=== PATIENT | male | born 1945 | race Caucasian/White ===

== ENCOUNTER → 2016-05-16 | Outpatient (CLI) | payer MEDICARE, BC ==
[2016-05-16 10:21] LABS: CHLORIDE,CL 107 mmol/L (98-110); SODIUM,NA 142 mmol/L (136-146)
== END ==
LOC: MW.CHRC 09:17
PROVIDERS: ATTEND Family Medicine
DX: E11.9 Type 2 diabetes mellitus without complications (principal); R41.3 Other amnesia; E78.00 Pure hypercholesterolemia, unspecified; M79.89 Other specified soft tissue disorders; I11.0 Hypertensive heart disease with heart failure; L60.0 Ingrowing nail
CPT/HCPCS: 36415; 80053; 80061; 82607; 83036; 83880; 84439; 84443; 85025; 99214

== ENCOUNTER 2016-05-26 22:46 | Emergency (ER) | payer MEDICARE, BC ==
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
[2016-05-26 23:35] LABS: CHLORIDE,CL 105 mmol/L (98-110); SODIUM,NA 140 mmol/L (136-146)
[2016-05-27 01:56] VITALS: BP 138/75
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
== END 2016-05-27 01:45 | disposition home or self-care (01) ==
LOC: MW.ED 22:46
DX: R53.1 Weakness (principal); F03.90 Unspecified dementia, unspecified severity, without behavioral disturbance, psychotic disturbance, mood disturbance, and anxiety; R60.9 Edema, unspecified; Z79.02 Long term (current) use of antithrombotics/antiplatelets; Z79.82 Long term (current) use of aspirin; Z79.899 Other long term (current) drug therapy; V89.2XXA Person injured in unspecified motor-vehicle accident, traffic, initial encounter
CPT/HCPCS: 70450; 70450-26; 71010; 71010-26; 80053; 81001; 84484; 85025; 93005; 99284-25; 99291

== ENCOUNTER → 2016-07-09 | Outpatient (CLI) | payer MEDICARE, BC | LOC: MW.CHPOD 08:00 | PROVIDERS: ATTEND Podiatrist Foot & Ankle Surgery | DX: M79.672 Pain in left foot (principal); R60.0 Localized edema; E11.9 Type 2 diabetes mellitus without complications; L60.0 Ingrowing nail; B35.1 Tinea unguium; M79.89 Other specified soft tissue disorders | CPT/HCPCS: 11721; 29580; 99214 ==

== ENCOUNTER 2016-10-18 13:00 | Inpatient (IN) | payer MEDICARE, BC ==
[2016-10-18] MEDS ORDERED: Acetaminophen 325 MG Tab PO PRN (13:43)
[2016-10-18] MEDS ORDERED: Sodium Chloride 0.9% 1,000 ML IV SCH ×2 (13:45→15:00)
--- NOTE | 2016-10-18 14:30 | PCM.HP ---
H&P History of Present Illness - General Admit Problem/Dx: Admission Diagnosis/Problem Admission Diagnosis/Problem Dehydration - History of Present Illness Initial Comments - Free Text/Narative: 71 yo male with pmh of Parkinson's disease who is brought to Dr. Le's clinic by family. Family reports he is having hallucinations at home and is not eating or taking care of himself. He has has had multiple falls. Family is concerned about his well being at home. - Related Data Allergies/Adverse Reactions: Allergies Allergy/AdvReac Type Severity Reaction Status Date / Time No Known Allergies Allergy Verified 05/26/16 23:36 Home Medications: Home Meds Clopidogrel [Plavix] 75 mg PO DAILY 12/06/14 [History] Dapagliflozin Propanediol [Farxiga] 5 mg PO DAILY 12/06/14 [History] Furosemide 40 mg PO DAILY 12/06/14 [History] Glimepiride 4 mg PO DAILY 12/06/14 [History] Lisinopril 30 mg PO DAILY 12/06/14 [History] Metoprolol Tartrate 100 mg PO DAILY 12/06/14 [History] SitaGLIPtin [Januvia] 100 mg PO DAILY 12/06/14 [History] atorvaSTATin [Lipitor] 20 mg PO DAILY 12/06/14 [History] metFORMIN [Glucophage] 1,000 mg PO BID 12/06/14 [History] Aspirin 81 mg PO DAILY 05/26/16 [History] amLODIPine [Norvasc] 10 mg PO DAILY 05/26/16 [History] Past Medical History - Past Health History Medical/Surgical History: Denies Medical/Surgical History Cardiovascular History: Reports: Hypertension - Past Surgical History Other Neurological Surgeries/Procedures: 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 Exam - Exam Exam: See Below - Vital Signs Weight: 105 kg - Exam General: Alert, Cooperative HEENT: Mucosa Moist & [place] Neck: Supple Lungs: Clear to Auscultation, Normal Respiratory Effort Cardiovascular: Regular Rate, Regular Rhythm GI/Abdominal Exam: Normal Bowel Sounds, Non-Tender, No Distention Rectal (Males) Exam: Other (small area of induration of left gluteal cleft) Extremities: Normal Inspection, Normal Range of Motion, Non-Tender, No Pedal Edema Skin: Warm, Dry, Intact Neurological: Cranial Nerves Intact, Other (resting tremor, with cogwheeling and shuffle gait) - Patient Data Result Diagrams: 10/20/16 04:48 10/20/16 04:48 *Q Meaningful Use (ADM) - VTE *Q VTE Criteria *Q: - Stroke *Q Stroke Criteria *Q: - AMI *Q AMI Criteria *Q: Problem List Initiated/Reviewed/Updated: Yes Orders Last 24hrs: Active Orders 24 hr Category Date Time Status Patient Status [ADT] Routine ADT 10/18/16 13:43 Active Antiembolic Devices [RC] PER UNIT ROUTINE Care 10/18/16 13:45 Active Intake and Output [RC] QSHIFT Care 10/18/16 13:44 Active Oxygen Therapy [RC] PRN Care 10/18/16 13:43 Active VTE/DVT Education [RC] PER UNIT ROUTINE Care 10/18/16 13:43 Active Vital Signs [RC] Q4H Care 10/18/16 13:43 Active [employer] Diet [DIET] Diet 10/18/16 Breakfast Active BASIC METABOLIC PANEL,BMP [CHEM] AM Lab 10/19/16 05:11 Ordered BASIC METABOLIC PANEL,BMP [CHEM] AM Lab 10/20/16 05:11 Ordered CBC WITH AUTO DIFF [HEME] AM Lab 10/19/16 05:11 Ordered CBC WITH AUTO DIFF [HEME] AM Lab 10/20/16 05:11 Ordered Acetaminophen [Tylenol] Med 10/18/16 13:43 Active 650 mg PO Q4H PRN Enoxaparin [Lovenox] Med 10/19/16 09:00 Active 40 mg SUBCUT DAILY Insulin Aspart [NovoLOG] Med 10/18/16 14:00 Active See Protocol SUBCUT TIDAC Sodium Chloride 0.9% [Normal Saline] 1,000 ml Med 10/18/16 13:45 Active IV ASDIRECTED Sequential Compression Device [OM.PC] Per Unit Routine Oth 10/18/16 13:44 Ordered Medication Orders Acetaminophen (Tylenol) 650 mg PO Q4H PRN PRN Reason: Pain (Mild 1-3)/fever Enoxaparin Sodium (Lovenox) 40 mg SUBCUT DAILY [facility] Sodium Chloride (Normal Saline) 1,000 mls @ 125 mls/hr IV ASDIRECTED [facility] Stop: 10/19/16 21:44 Insulin Aspart (Novolog) 0 unit SUBCUT TIDAC [facility] PRN Reason: Protocol Assessment/Plan Comment:: 71 yo male admitted for failure to thrive at home. His BUN is elevated so he may be dehydrated. Will give some IV fluids. Will obtain medical records inorder to reconcile medications. He has been seeing Dr. Mccullough who has been adjusting his medications.
[2016-10-18] MEDS: Insulin Aspart 100 Units/ML 3 ML Pen SUBCUT SCH ×2 (14:32→17:40)
[2016-10-19 05:23] LABS: CHLORIDE,CL 107 mmol/L (98-110); SODIUM,NA 142 mmol/L (136-146)
[2016-10-19] MEDS: Insulin Aspart 100 Units/ML 3 ML Pen SUBCUT SCH ×3 (06:30→17:10)
[2016-10-19] MEDS: atorvaSTATin 20 MG Tab PO SCH (08:43)
[2016-10-19] MEDS: Clopidogrel 75 MG Tab PO SCH (08:43)
[2016-10-19] MEDS: amLODIPine 5 MG Tab PO SCH (08:43)
[2016-10-19] MEDS: Aspirin 81 MG Tab.Chew PO SCH (08:44)
[2016-10-19] MEDS: Enoxaparin 40 MG/0.4 ML Syringe SUBCUT SCH (08:44)
--- NOTE | 2016-10-19 12:26 | PCM.PN ---
- Review of Systems Systems Review Comment:: no complaints, orientated to day and place. - Patient Data Vitals - Most Recent: Last Vital Signs Temp 36.7 C 10/19/16 08:00 Pulse 73 10/19/16 08:00 Resp 19 10/19/16 08:00 BP 132/60 10/19/16 08:43 Pulse Ox 98 10/19/16 08:00 Weight - Most Recent: 105 kg I&O - Last 24 Hours: Intake & Output 10/18/16 10/19/16 10/19/16 22:59 06:59 14:59 Intake Total 360 520 Output Total 350 850 Balance 10 -330 Lab Results Last 24 Hours: Laboratory Results - last 24 hr 10/18/16 10/18/16 10/19/16 Range/Units 14:26 16:21 04:38 WBC 7.61 (4.0-11.0) K/uL RBC 4.36 L (4.50-5.90) M/uL Hgb 13.0 (13.0-17.0) g/dL Hct 38.6 (38.0-50.0) % MCV 88.5 (80.0-98.0) fL MCH 29.8 (27.0-32.0) pg MCHC 33.7 (31.0-37.0) g/dL RDW Std Deviation 45.8 (28.0-62.0) fl RDW Coeff of Jess 14 (11.0-15.0) % Plt Count 250 (150-400) K/uL MPV 9.60 (7.40-12.00) fL Neut % (Auto) 57.3 (48.0-80.0) % Lymph % (Auto) 25.8 (16.0-40.0) % [place] % (Auto) 12.2 (0.0-15.0) % Eos % (Auto) 4.3 (0.0-7.0) % Baso % (Auto) 0.4 (0.0-1.5) % Neut # (Auto) 4.4 (1.4-5.7) K/uL Lymph # (Auto) 2.0 (0.6-2.4) K/uL [place] # (Auto) 0.9 H (0.0-0.8) K/uL Eos # (Auto) 0.3 (0.0-0.7) K/uL Baso # (Auto) 0.0 (0.0-0.1) K/uL Nucleated RBC % 0.0 /100WBC Nucleated RBCs # 0 K/uL Sodium (136-146) mmol/L Potassium (3.5-5.1) mmol/L Chloride (98-110) mmol/L Carbon Dioxide (21-31) mmol/L BUN (6.0-23.0) mg/dL Creatinine (0.6-1.5) mg/dL Est Cr Clr Drug Dosing mL/min Estimated GFR (MDRD) ml/min Glucose (60-110) mg/dL POC Glucose 100 198 H (60-110) mg/dL Calcium (8.8-10.8) mg/dL 10/19/16 10/19/16 10/19/16 Range/Units 04:38 06:07 11:30 WBC (4.0-11.0) K/uL RBC (4.50-5.90) M/uL Hgb (13.0-17.0) g/dL Hct (38.0-50.0) % MCV (80.0-98.0) fL MCH (27.0-32.0) pg MCHC (31.0-37.0) g/dL RDW Std Deviation (28.0-62.0) fl RDW Coeff of Jess (11.0-15.0) % Plt Count (150-400) K/uL MPV (7.40-12.00) fL Neut % (Auto) (48.0-80.0) % Lymph % (Auto) (16.0-40.0) % [place] % (Auto) (0.0-15.0) % Eos % (Auto) (0.0-7.0) % Baso % (Auto) (0.0-1.5) % Neut # (Auto) (1.4-5.7) K/uL Lymph # (Auto) (0.6-2.4) K/uL [place] # (Auto) (0.0-0.8) K/uL Eos # (Auto) (0.0-0.7) K/uL Baso # (Auto) (0.0-0.1) K/uL Nucleated RBC % /100WBC Nucleated RBCs # K/uL Sodium 142 (136-146) mmol/L Potassium 3.7 (3.5-5.1) mmol/L Chloride 107 (98-110) mmol/L Carbon Dioxide 26 (21-31) mmol/L BUN 27 H (6.0-23.0) mg/dL Creatinine 0.8 (0.6-1.5) mg/dL Est Cr Clr Drug Dosing 70.14 mL/min Estimated GFR (MDRD) > 60.0 ml/min Glucose 83 (60-110) mg/dL POC Glucose 86 148 H (60-110) mg/dL Calcium 8.8 (8.8-10.8) mg/dL Med Orders - Current: Current Medications Acetaminophen (Tylenol) 650 mg PO Q4H PRN PRN Reason: Pain (Mild 1-3)/fever Last Admin: 10/18/16 18:13 Dose: 650 mg Amlodipine Besylate (Norvasc) 10 mg PO DAILY [facility] Last Admin: 10/19/16 08:43 Dose: 10 mg Aspirin (Aspirin) 81 mg PO DAILY [facility] Last Admin: 10/19/16 08:44 Dose: 81 mg Atorvastatin Calcium (Lipitor) 20 mg PO DAILY [facility] Last Admin: 10/19/16 08:43 Dose: 20 mg Clopidogrel Bisulfate (Plavix) 75 mg PO DAILY [facility] Last Admin: 10/19/16 08:43 Dose: 75 mg Enoxaparin Sodium (Lovenox) 40 mg SUBCUT DAILY [facility] Last Admin: 10/19/16 08:44 Dose: 40 mg Insulin Aspart (Novolog) 0 unit SUBCUT TIDAC [facility] PRN Reason: Protocol Last Admin: 10/19/16 11:39 Dose: Not Given Discontinued Medications Sodium Chloride (Normal Saline) 1,000 mls @ 125 mls/hr IV ASDIRECTED [facility] Stop: 10/19/16 21:44 Last Admin: 10/18/16 14:32 Dose: 125 mls/hr Sodium Chloride (Normal Saline) 1,000 mls @ 125 mls/hr IV ASDIRECTED [facility] Stop: 10/18/16 22:59 Last Admin: 10/18/16 15:00 Dose: 125 mls/hr - Exam General: Alert, Cooperative, No Acute Distress Lungs: Clear to Auscultation, Normal Respiratory Effort Cardiovascular: Regular Rate, Regular Rhythm GI/Abdominal Exam: Normal Bowel Sounds, Soft, Non-Tender, No Distention Extremities: Normal Inspection, Non-Tender, No Pedal Edema Skin: Warm, Dry, Intact Neurological: No New Focal Deficit - Problem List Review Problem List Initiated/Reviewed/Updated: Yes - My Orders Last 24 Hours: My Active Orders 10/18/16 13:43 Patient Status [ADT] Routine Oxygen Therapy [RC] PRN VTE/DVT Education [RC] PER UNIT ROUTINE Vital Signs [RC] Q4H Acetaminophen [Tylenol] 650 mg PO Q4H PRN 10/18/16 13:44 Intake and Output [RC] Q12H Sequential Compression Device [OM.PC] Per Unit Routine 10/18/16 13:45 Antiembolic Devices [RC] PER UNIT ROUTINE 10/18/16 14:00 Insulin Aspart [NovoLOG] See Protocol SUBCUT TIDAC 10/18/16 17:57 Blood Glucose Check, Bedside [RC] TIDAC 10/19/16 09:00 Aspirin 81 mg PO DAILY Clopidogrel [Plavix] 75 mg PO DAILY Enoxaparin [Lovenox] 40 mg SUBCUT DAILY amLODIPine [Norvasc] 10 mg PO DAILY atorvaSTATin [Lipitor] 20 mg PO DAILY 10/19/16 10:37 Consult to Physical Therapy [PT Evaluation and Treatment] [CONS] Routine 10/20/16 05:11 BASIC METABOLIC PANEL,BMP [CHEM] AM CBC WITH AUTO DIFF [HEME] AM - Plan Plan:: Patient appears to have an unspecified movement disorder and dementia. He has been followed by Dr. Mccullough but sinemet and rivastigmine have made his hallucinations worse. Patient has wander guard. Patient will likely need SNF placement.
[2016-10-20 05:21] LABS: CHLORIDE,CL 111 mmol/L (98-110); SODIUM,NA 142 mmol/L (136-146)
[2016-10-20] MEDS: Insulin Aspart 100 Units/ML 3 ML Pen SUBCUT SCH ×3 (06:32→16:36)
[2016-10-20] MEDS: Aspirin 81 MG Tab.Chew PO SCH (08:16)
[2016-10-20] MEDS: atorvaSTATin 20 MG Tab PO SCH (08:19)
[2016-10-20] MEDS: Clopidogrel 75 MG Tab PO SCH (08:21)
[2016-10-20] MEDS: amLODIPine 5 MG Tab PO SCH (08:21)
[2016-10-20] MEDS: Enoxaparin 40 MG/0.4 ML Syringe SUBCUT SCH (08:24)
--- NOTE | 2016-10-20 10:12 | PCM.PN ---
- Review of Systems Systems Review Comment:: no new complaints, needs help getting out of bed and off of toilet. - Patient Data Vitals - Most Recent: Last Vital Signs Temp 36.7 C 10/20/16 08:00 Pulse 66 10/20/16 08:00 Resp 18 10/20/16 08:00 BP 127/69 10/20/16 08:21 Pulse Ox 94 L 10/20/16 08:00 Weight - Most Recent: 105 kg I&O - Last 24 Hours: Intake & Output 10/19/16 10/20/16 10/20/16 22:59 06:59 14:59 Intake Total 1200 480 Output Total 900 750 Balance 300 -270 Lab Results Last 24 Hours: Laboratory Results - last 24 hr 10/19/16 10/19/16 10/20/16 Range/Units 11:30 16:55 04:48 WBC 7.44 (4.0-11.0) K/uL RBC 4.41 L (4.50-5.90) M/uL Hgb 13.3 (13.0-17.0) g/dL Hct 39.2 (38.0-50.0) % MCV 88.9 (80.0-98.0) fL MCH 30.2 (27.0-32.0) pg MCHC 33.9 (31.0-37.0) g/dL RDW Std Deviation 46.1 (28.0-62.0) fl RDW Coeff of Jess 14 (11.0-15.0) % Plt Count 232 (150-400) K/uL MPV 9.40 (7.40-12.00) fL Neut % (Auto) 52.1 (48.0-80.0) % Lymph % (Auto) 32.4 (16.0-40.0) % Kern % (Auto) 10.3 (0.0-15.0) % Eos % (Auto) 4.7 (0.0-7.0) % Baso % (Auto) 0.5 (0.0-1.5) % Neut # (Auto) 3.9 (1.4-5.7) K/uL Lymph # (Auto) 2.4 (0.6-2.4) K/uL Kern # (Auto) 0.8 (0.0-0.8) K/uL Eos # (Auto) 0.4 (0.0-0.7) K/uL Baso # (Auto) 0.0 (0.0-0.1) K/uL Nucleated RBC % 0.0 /100WBC Nucleated RBCs # 0 K/uL Sodium (136-146) mmol/L Potassium (3.5-5.1) mmol/L Chloride (98-110) mmol/L Carbon Dioxide (21-31) mmol/L BUN (6.0-23.0) mg/dL Creatinine (0.6-1.5) mg/dL Est Cr Clr Drug Dosing mL/min Estimated GFR (MDRD) ml/min Glucose (60-110) mg/dL POC Glucose 148 H 188 H (60-110) mg/dL Calcium (8.8-10.8) mg/dL 10/20/16 Range/Units 04:48 WBC (4.0-11.0) K/uL RBC (4.50-5.90) M/uL Hgb (13.0-17.0) g/dL Hct (38.0-50.0) % MCV (80.0-98.0) fL MCH (27.0-32.0) pg MCHC (31.0-37.0) g/dL RDW Std Deviation (28.0-62.0) fl RDW Coeff of Jess (11.0-15.0) % Plt Count (150-400) K/uL MPV (7.40-12.00) fL Neut % (Auto) (48.0-80.0) % Lymph % (Auto) (16.0-40.0) % Kern % (Auto) (0.0-15.0) % Eos % (Auto) (0.0-7.0) % Baso % (Auto) (0.0-1.5) % Neut # (Auto) (1.4-5.7) K/uL Lymph # (Auto) (0.6-2.4) K/uL Kern # (Auto) (0.0-0.8) K/uL Eos # (Auto) (0.0-0.7) K/uL Baso # (Auto) (0.0-0.1) K/uL Nucleated RBC % /100WBC Nucleated RBCs # K/uL Sodium 142 (136-146) mmol/L Potassium 3.6 (3.5-5.1) mmol/L Chloride 111 H (98-110) mmol/L Carbon Dioxide 24 (21-31) mmol/L BUN 16 (6.0-23.0) mg/dL Creatinine 0.7 (0.6-1.5) mg/dL Est Cr Clr Drug Dosing 80.16 mL/min Estimated GFR (MDRD) > 60.0 ml/min Glucose 97 (60-110) mg/dL POC Glucose (60-110) mg/dL Calcium 8.7 L (8.8-10.8) mg/dL Med Orders - Current: Current Medications Acetaminophen (Tylenol) 650 mg PO Q4H PRN PRN Reason: Pain (Mild 1-3)/fever Last Admin: 10/18/16 18:13 Dose: 650 mg Amlodipine Besylate (Norvasc) 10 mg PO DAILY [facility] Last Admin: 10/20/16 08:21 Dose: 10 mg Aspirin (Aspirin) 81 mg PO DAILY [facility] Last Admin: 10/20/16 08:16 Dose: 81 mg Atorvastatin Calcium (Lipitor) 20 mg PO DAILY [facility] Last Admin: 10/20/16 08:19 Dose: 20 mg Clopidogrel Bisulfate (Plavix) 75 mg PO DAILY [facility] Last Admin: 10/20/16 08:21 Dose: 75 mg Enoxaparin Sodium (Lovenox) 40 mg SUBCUT DAILY [facility] Last Admin: 10/20/16 08:24 Dose: 40 mg Insulin Aspart (Novolog) 0 unit SUBCUT TIDAC [facility] PRN Reason: Protocol Last Admin: 10/20/16 06:32 Dose: Not Given Discontinued Medications Sodium Chloride (Normal Saline) 1,000 mls @ 125 mls/hr IV ASDIRECTED [facility] Stop: 10/19/16 21:44 Last Admin: 10/18/16 14:32 Dose: 125 mls/hr Sodium Chloride (Normal Saline) 1,000 mls @ 125 mls/hr IV ASDIRECTED [facility] Stop: 10/18/16 22:59 Last Admin: 10/18/16 15:00 Dose: 125 mls/hr - Exam General: Cooperative, No Acute Distress Neck: Supple Lungs: Clear to Auscultation, Normal Respiratory Effort Cardiovascular: Regular Rate, Regular Rhythm GI/Abdominal Exam: Soft, Non-Tender Extremities: No Pedal Edema Skin: Warm, Dry, Intact Neurological: No New Focal Deficit - Problem List Review Problem List Initiated/Reviewed/Updated: Yes - My Orders Last 24 Hours: My Active Orders 10/19/16 10:37 Consult to Physical Therapy [PT Evaluation and Treatment] [CONS] Routine 10/19/16 12:58 Code Status [Resuscitation Status] Routine - Plan Plan:: Patient appears to have an unspecified movement disorder and dementia. He has been followed by Dr. Mccullough but sinemet and rivastigmine have made his hallucinations worse. Discharge is pending placement.
[2016-10-21] MEDS: Insulin Aspart 100 Units/ML 3 ML Pen SUBCUT SCH ×3 (06:32→17:03)
[2016-10-21] MEDS: Clopidogrel 75 MG Tab PO SCH (08:09)
[2016-10-21] MEDS: Aspirin 81 MG Tab.Chew PO SCH (08:09)
[2016-10-21] MEDS: atorvaSTATin 20 MG Tab PO SCH (08:09)
[2016-10-21] MEDS: amLODIPine 5 MG Tab PO SCH (08:10)
[2016-10-21] MEDS: Enoxaparin 40 MG/0.4 ML Syringe SUBCUT SCH (08:11)
--- NOTE | 2016-10-21 10:08 | PCM.PN ---
- Review of Systems Systems Review Comment:: no new complaints - Patient Data Vitals - Most Recent: Last Vital Signs Temp 37.1 C 10/21/16 08:00 Pulse 62 10/21/16 08:00 Resp 18 10/21/16 08:00 BP 132/72 10/21/16 08:10 Pulse Ox 95 10/21/16 08:00 Weight - Most Recent: 105 kg I&O - Last 24 Hours: Intake & Output 10/20/16 10/21/16 10/21/16 22:59 06:59 14:59 Intake Total 1376 280 Output Total 600 1230 Balance 776 -950 Lab Results Last 24 Hours: Laboratory Results - last 24 hr 10/20/16 10/20/16 10/20/16 Range/Units 06:16 11:49 16:34 POC Glucose 113 H 186 H 236 H (60-110) mg/dL Med Orders - Current: Current Medications Acetaminophen (Tylenol) 650 mg PO Q4H PRN PRN Reason: Pain (Mild 1-3)/fever Last Admin: 10/18/16 18:13 Dose: 650 mg Amlodipine Besylate (Norvasc) 10 mg PO DAILY [facility] Last Admin: 10/21/16 08:10 Dose: 10 mg Aspirin (Aspirin) 81 mg PO DAILY [facility] Last Admin: 10/21/16 08:09 Dose: 81 mg Atorvastatin Calcium (Lipitor) 20 mg PO DAILY [facility] Last Admin: 10/21/16 08:09 Dose: 20 mg Clopidogrel Bisulfate (Plavix) 75 mg PO DAILY [facility] Last Admin: 10/21/16 08:09 Dose: 75 mg Enoxaparin Sodium (Lovenox) 40 mg SUBCUT DAILY [facility] Last Admin: 10/21/16 08:11 Dose: 40 mg Insulin Aspart (Novolog) 0 unit SUBCUT TIDAC [facility] PRN Reason: Protocol Last Admin: 10/21/16 06:32 Dose: Not Given Discontinued Medications Sodium Chloride (Normal Saline) 1,000 mls @ 125 mls/hr IV ASDIRECTED [facility] Stop: 10/19/16 21:44 Last Admin: 10/18/16 14:32 Dose: 125 mls/hr Sodium Chloride (Normal Saline) 1,000 mls @ 125 mls/hr IV ASDIRECTED [facility] Stop: 10/18/16 22:59 Last Admin: 10/18/16 15:00 Dose: 125 mls/hr - Exam General: Cooperative, No Acute Distress Lungs: Clear to Auscultation, Normal Respiratory Effort Cardiovascular: Regular Rate, Regular Rhythm GI/Abdominal Exam: Normal Bowel Sounds, Non-Tender, No Distention Extremities: No Pedal Edema - Problem List Review Problem List Initiated/Reviewed/Updated: Yes - Plan Plan:: 71 yo male with dementia and movement disorder. discharge pending placement.
[2016-10-22] MEDS: Insulin Aspart 100 Units/ML 3 ML Pen SUBCUT SCH ×2 (06:35→12:36)
[2016-10-22] MEDS: Aspirin 81 MG Tab.Chew PO SCH (08:38)
[2016-10-22] MEDS: Clopidogrel 75 MG Tab PO SCH (08:38)
[2016-10-22] MEDS: amLODIPine 5 MG Tab PO SCH (08:39)
[2016-10-22] MEDS: atorvaSTATin 20 MG Tab PO SCH (08:39)
[2016-10-22] MEDS: Enoxaparin 40 MG/0.4 ML Syringe SUBCUT SCH (08:45)
--- NOTE | 2016-10-22 10:12 | PCM.PN ---
- General Info Date of Service: 10/22/16 Admission Dx/Problem (Free Text): Admission Diagnosis/Problem Admission Diagnosis/Problem Dehydration Subjective Update: Sitlexii hardwickp in chair, eating breakfast this morning. Reports feeling bad. Denies chest pain or SOB. having some L great toe pain. Not eager about going to [facility]. Functional Status: Reports: Pain Controlled, Tolerating Diet, Ambulating, Urinating - Review of Systems General: Reports: No Symptoms. Denies: Fever HEENT: Reports: No Symptoms. Denies: Sore Throat Pulmonary: Reports: No Symptoms. Denies: Shortness of Breath, Cough, Sputum Cardiovascular: Reports: No Symptoms. Denies: Chest Pain Gastrointestinal: Reports: No Symptoms. Denies: Abdominal Pain, Diarrhea, Nausea, Vomiting Genitourinary: Reports: No Symptoms. Denies: Dysuria, Frequency, Burning Skin: Reports: No Symptoms - Patient Data Vitals - Most Recent: Last Vital Signs Temp 98.7 F 10/22/16 08:20 Pulse 92 10/22/16 08:20 Resp 14 10/22/16 08:20 BP 145/78 H 10/22/16 08:39 Pulse Ox 98 10/22/16 08:20 Weight - Most Recent: 105 kg I&O - Last 24 Hours: Intake & Output 10/21/16 10/22/16 10/22/16 22:59 06:59 14:59 Intake Total 1214 1166 Output Total 700 1180 Balance 514 -14 Lab Results Last 24 Hours: Laboratory Results - last 24 hr 10/21/16 10/21/16 10/21/16 Range/Units 06:19 11:17 16:17 POC Glucose 116 H 164 H 196 H (60-110) mg/dL Med Orders - Current: Current Medications Acetaminophen (Tylenol) 650 mg PO Q4H PRN PRN Reason: Pain (Mild 1-3)/fever Last Admin: 10/18/16 18:13 Dose: 650 mg Amlodipine Besylate (Norvasc) 10 mg PO DAILY [facility] Last Admin: 10/22/16 08:39 Dose: 10 mg Aspirin (Aspirin) 81 mg PO DAILY [facility] Last Admin: 10/22/16 08:38 Dose: 81 mg Atorvastatin Calcium (Lipitor) 20 mg PO DAILY [facility] Last Admin: 10/22/16 08:39 Dose: 20 mg Clopidogrel Bisulfate (Plavix) 75 mg PO DAILY [facility] Last Admin: 10/22/16 08:38 Dose: 75 mg Enoxaparin Sodium (Lovenox) 40 mg SUBCUT DAILY [facility] Last Admin: 10/22/16 08:45 Dose: 40 mg Insulin Aspart (Novolog) 0 unit SUBCUT TIDAC [facility] PRN Reason: Protocol Last Admin: 10/22/16 06:35 Dose: Not Given Discontinued Medications Sodium Chloride (Normal Saline) 1,000 mls @ 125 mls/hr IV ASDIRECTED [facility] Stop: 10/19/16 21:44 Last Admin: 10/18/16 14:32 Dose: 125 mls/hr Sodium Chloride (Normal Saline) 1,000 mls @ 125 mls/hr IV ASDIRECTED [facility] Stop: 10/18/16 22:59 Last Admin: 10/18/16 15:00 Dose: 125 mls/hr - Exam General: Alert, Cooperative, No Acute Distress Neck: Supple Lungs: Clear to Auscultation, Normal Respiratory Effort Cardiovascular: Regular Rate, Regular Rhythm GI/Abdominal Exam: Normal Bowel Sounds, Soft, Non-Tender, No Organomegaly, No Distention, No Abnormal Bruit, No Mass, Pelvis Stable Extremities: Normal Inspection, Normal Range of Motion, Non-Tender, Normal Capillary Refill, Pedal Edema (trace to +1 non pitting) Wound/Incisions: Other (Ingrown toenoail noted to L great toe, no erythema, slight tenderness with palptation) Neurological: No New Focal Deficit Psy/Mental Status: Alert, Normal Affect, Normal Mood - Problem List & Annotations (1) Dehydration SNOMED Code(s): 99670671 Code(s): E86.0 - DEHYDRATION Status: Resolved Current Visit: Yes (2) Physical deconditioning SNOMED Code(s): 90920903601260 Code(s): R53.81 - OTHER MALAISE Status: Acute Current Visit: Yes (3) Falls SNOMED Code(s): 3991089, 180645250 Code(s): W19.XXXA - UNSPECIFIED FALL, INITIAL ENCOUNTER Status: Acute Current Visit: Yes Qualifiers: Encounter type: initial encounter Qualified Code(s): W19.XXXA - Unspecified fall, initial encounter (4) Failure to thrive SNOMED Code(s): 90113154 Code(s): FXO0100 - Status: Acute Current Visit: Yes Qualifiers: Failure to thrive age range: in adult Qualified Code(s): R62.7 - Adult failure to thrive (5) Parkinson disease SNOMED Code(s): 30742410 Code(s): G20 - PARKINSON'S DISEASE Status: Chronic Current Visit: Yes (6) Memory loss SNOMED Code(s): 32138761 Code(s): R41.3 - OTHER AMNESIA Status: Chronic Current Visit: Yes (7) DM type 2 (diabetes mellitus, type 2) SNOMED Code(s): 75557894 Code(s): E11.9 - TYPE 2 DIABETES MELLITUS WITHOUT COMPLICATIONS Status: Chronic Current Visit: Yes Qualifiers: Diabetes mellitus complication status: without complication Diabetes mellitus warp dyeing tender insulin use: without warp dyeing tender use Qualified Code(s): E11.9 - Type 2 diabetes mellitus without complications (8) CAD (coronary artery disease) SNOMED Code(s): 78809397 Code(s): I25.10 - ATHSCL HEART DISEASE OF [place] CORONARY ARTERY W/O ANG PCTRS Status: Chronic Current Visit: Yes Qualifiers: Coronary Disease-Associated Artery/Lesion type: [place] artery [place] vs. transplanted heart: [place] heart Associated angina: without angina Qualified Code(s): I25.10 - Atherosclerotic heart disease of [place] coronary artery without angina pectoris (9) Dementia SNOMED Code(s): 65238859 Code(s): F03.90 - UNSPECIFIED DEMENTIA WITHOUT BEHAVIORAL DISTURBANCE Status: Chronic Current Visit: No Qualifiers: Dementia type: Parkinson's disease (10) HTN (hypertension) SNOMED Code(s): 81915455 Code(s): I10 - ESSENTIAL (PRIMARY) HYPERTENSION Status: Chronic Current Visit: No Qualifiers: Hypertension type: essential hypertension Qualified Code(s): I10 - Essential (primary) hypertension - Problem List Review Problem List Initiated/Reviewed/Updated: Yes - Plan Plan:: 71 yo male with Parkinson disease and dementia 1. Dehydration: Resolved. Eating well and taking fluids well. 2. Parkinson: Progressive decline noted at home, having more falls and not able to care for himself. Son and family want him to be placed in [facility] , so care is able to be provided to him. Per Dr. Mccullough, at last appointment she recommended more care at home and suggested assisted living due to decline. No improvement seen with Sinemet. Rivastigimine started in August after this appointment with Dr. Mccullough. 3. DM type 2: Novolog SSI while hospitalized, will restart home medications upon discharge. Stable. 4. CAD: Continue Plavix, ASA, and Lipitor 5. HTN: Continue Norvasc. VTE prophylaxis: Lovenox Dispo: Pending SNF placement
--- NOTE | 2016-10-22 11:14 | PCM.DCSUM1 ---
Discharge Summary - Hospital Course Brief History: 71 yo male with pmh of Parkinson's disease with dementia, CAD, HTN, DM type [address] Le's clinic by family. Family reports he is having hallucinations at home and is not eating or taking care of himself. He has has had multiple falls. Family is concerned about his well being at home. He was admitted with dehydration, failure to thrive and generalized weakness. - Discharge Data Discharge Date: 10/22/16 Discharge Disposition: DC/Tfer to SNF 03 Condition: Good - Discharge Diagnosis/Problem(s) (1) Dehydration SNOMED Code(s): 39045059 ICD Code: E86.0 - DEHYDRATION Status: Resolved Current Visit: Yes (2) Physical deconditioning SNOMED Code(s): 45082414853809 ICD Code: R53.81 - OTHER MALAISE Status: Acute Current Visit: Yes (3) Falls SNOMED Code(s): 6000588, 610001074 ICD Code: W19.XXXA - UNSPECIFIED FALL, INITIAL ENCOUNTER Status: Acute Current Visit: Yes Qualifiers: Encounter type: initial encounter Qualified Code(s): W19.XXXA - Unspecified fall, initial encounter (4) Failure to thrive SNOMED Code(s): 61427203 ICD Code: CTX3156 - Status: Acute Current Visit: Yes Qualifiers: Failure to thrive age range: in adult Qualified Code(s): R62.7 - Adult failure to thrive (5) Parkinson disease SNOMED Code(s): 37495856 ICD Code: G20 - PARKINSON'S DISEASE Status: Chronic Current Visit: Yes (6) Memory loss SNOMED Code(s): 63274108 ICD Code: R41.3 - OTHER AMNESIA Status: Chronic Current Visit: Yes (7) DM type 2 (diabetes mellitus, type 2) SNOMED Code(s): 52628951 ICD Code: E11.9 - TYPE 2 DIABETES MELLITUS WITHOUT COMPLICATIONS Status: Chronic Current Visit: Yes Qualifiers: Diabetes mellitus complication status: without complication Diabetes mellitus fdc insulin use: without fdc use Qualified Code(s): E11.9 - Type 2 diabetes mellitus without complications (8) CAD (coronary artery disease) SNOMED Code(s): 49429550 ICD Code: I25.10 - ATHSCL HEART DISEASE OF [place] CORONARY ARTERY W/O ANG PCTRS Status: Chronic Current Visit: Yes Qualifiers: Coronary Disease-Associated Artery/Lesion type: [place] artery [place] vs. transplanted heart: [place] heart Associated angina: without angina Qualified Code(s): I25.10 - Atherosclerotic heart disease of [place] coronary artery without angina pectoris (9) Dementia SNOMED Code(s): 17732709 ICD Code: F03.90 - UNSPECIFIED DEMENTIA WITHOUT BEHAVIORAL DISTURBANCE Status: Chronic Current Visit: No Qualifiers: Dementia type: Parkinson's disease (10) HTN (hypertension) SNOMED Code(s): 05395880 ICD Code: I10 - ESSENTIAL (PRIMARY) HYPERTENSION Status: Chronic Current Visit: No Qualifiers: Hypertension type: essential hypertension Qualified Code(s): I10 - Essential (primary) hypertension - Patient Summary/Data Consults: Consultations 10/19/16 10:37 Consult to Physical Therapy [PT Evaluation and Treatment] [CONS] Routine - Patient Instructions Diet: Diabetic Diet Activity: As Tolerated Driving: Do Not Drive Showering/Bathing: May Shower Notify Provider of: Fever, Increased Pain, Swelling and Redness, Drainage, Nausea and/or Vomiting Other/Special Instructions: Check Blood sugars daily before breakfast. PT/OT/ ST to evaluate and treat. - Discharge Plan Prescriptions/Med Rec: Acetaminophen [Tylenol] 650 mg PO Q4H PRN #30 tablet PRN Reason: Pain Home Medications: Home Meds Clopidogrel [Plavix] 75 mg PO DAILY 12/06/14 [History] Dapagliflozin Propanediol [Farxiga] 5 mg PO DAILY 12/06/14 [History] Furosemide 40 mg PO DAILY 12/06/14 [History] Glimepiride 4 mg PO DAILY 12/06/14 [History] Lisinopril 30 mg PO DAILY 12/06/14 [History] Metoprolol Tartrate 100 mg PO DAILY 12/06/14 [History] SitaGLIPtin [Januvia] 100 mg PO DAILY 12/06/14 [History] atorvaSTATin [Lipitor] 20 mg PO DAILY 12/06/14 [History] metFORMIN [Glucophage] 1,000 mg PO BID 12/06/14 [History] Aspirin 81 mg PO DAILY 05/26/16 [History] amLODIPine [Norvasc] 10 mg PO DAILY 05/26/16 [History] Acetaminophen [Tylenol] 650 mg PO Q4H PRN #30 tablet 10/22/16 [Rx] Patient Handouts: Parkinson Disease, [id number] Referrals: Eneida Mccullough MD [Physician] - 12/06/16 11:15 am () Edgard Chavez MD [Physician] - (Next [place] Rounds) - Discharge Summary/Plan Comment DC Time >30 min.: No Discharge Summary/Plan Comment: Discharge Diagnoses: Dehydration-resolved Generalized weakness Multiple Falls Parkinsons disease Dementia CAD HTN DM type 2 Edwar was admitted and treated with IVFs x 1 day and PT was consulted due to weakness. He has done well with his hospital stay. He does need nursing assistance for transferring, using bathroom, and for ADLs. Family continues to want placement in [place] for continued care, due to deficit in self care. Patient today is agreeable with transfer to [place]. Will continue all home medications as previously prescribed. He will have PT/OT/ST to evaluate and treat at [place]. We will arrange follow up with Dr. Chavez at [facility] and with Dr. Mccullough for movement disorder and continued care. - General Info Date of Service: 10/22/16 Admission Dx/Problem (Free Text: Admission Diagnosis/Problem Admission Diagnosis/Problem Dehydration Subjective Update: Notified patient of transfer to [place], he says "Ok, so I am checking out today. " He is ok with transfer to [place]. Nursing to notify son of transfer. - Review of Systems General: Reports: No Symptoms HEENT: Reports: No Symptoms Pulmonary: Reports: No Symptoms. Denies: Shortness of Breath Cardiovascular: Reports: No Symptoms. Denies: Chest Pain - Patient Data Vitals - Most Recent: Last Vital Signs Temp 98.7 F 10/22/16 08:20 Pulse 92 10/22/16 08:20 Resp 14 10/22/16 08:20 BP 145/78 H 10/22/16 08:39 Pulse Ox 98 10/22/16 08:20 Weight - Most Recent: 105 kg I&O - Last 24 hours: Intake & Output 10/21/16 10/22/16 10/22/16 22:59 06:59 14:59 Intake Total 1214 1166 Output Total 700 1180 Balance 514 -14 Lab Results - Last 24 hrs: Laboratory Results - last 24 hr 10/21/16 10/21/1610/21/17 Range/Units 06:19 11:17 16:17 POC Glucose 116 H 164 H 196 H (60-110) mg/dL Med Orders - Current: Current Medications Acetaminophen (Tylenol) 650 mg PO Q4H PRN PRN Reason: Pain (Mild 1-3)/fever Last Admin: 10/18/16 18:13 Dose: 650 mg Amlodipine Besylate (Norvasc) 10 mg PO DAILY [facility] Last Admin: 10/22/16 08:39 Dose: 10 mg Aspirin (Aspirin) 81 mg PO DAILY [facility] Last Admin: 10/22/16 08:38 Dose: 81 mg Atorvastatin Calcium (Lipitor) 20 mg PO DAILY [facility] Last Admin: 10/22/16 08:39 Dose: 20 mg Clopidogrel Bisulfate (Plavix) 75 mg PO DAILY [facility] Last Admin: 10/22/16 08:38 Dose: 75 mg Enoxaparin Sodium (Lovenox) 40 mg SUBCUT DAILY [facility] Last Admin: 10/22/16 08:45 Dose: 40 mg Insulin Aspart (Novolog) 0 unit SUBCUT TIDAC [facility] PRN Reason: Protocol Last Admin: 10/22/16 06:35 Dose: Not Given Discontinued Medications Sodium Chloride (Normal Saline) 1,000 mls @ 125 mls/hr IV ASDIRECTED [facility] Stop: 10/19/16 21:44 Last Admin: 10/18/16 14:32 Dose: 125 mls/hr Sodium Chloride (Normal Saline) 1,000 mls @ 125 mls/hr IV ASDIRECTED [facility] Stop: 10/18/16 22:59 Last Admin: 10/18/16 15:00 Dose: 125 mls/hr - Exam General: Reports: Alert, Cooperative, No Acute Distress Neck: Reports: Supple Lungs: Reports: Clear to Auscultation, Normal Respiratory Effort Cardiovascular: Reports: Regular Rate, Regular Rhythm Neurological: Reports: No New Focal Deficit (continued confusion and slow speech which is baseline. up with assist of one and walker) Psy/Mental Status: Reports: Alert, Normal Affect, Normal Mood *Q Meaningful Use (DIS) - VTE *Q VTE Criteria *Q: - Stroke *Q Stroke Criteria *Q: - AMI *Q AMI Criteria *Q:
[2016-10-22 12:05] VITALS: BP 143/69
== END 2016-10-22 14:15 | DRG 641 ==
LOC: MW.MS 13:00
PROVIDERS: ADMIT Internal Medicine; ATTEND Internal Medicine
DX: E86.0 Dehydration (principal); R53.1 Weakness; R53.81 Other malaise; R62.7 Adult failure to thrive; G20 Parkinson's disease; R41.3 Other amnesia; E11.9 Type 2 diabetes mellitus without complications; I25.10 Atherosclerotic heart disease of native coronary artery without angina pectoris; F03.90 Unspecified dementia, unspecified severity, without behavioral disturbance, psychotic disturbance, mood disturbance, and anxiety; I10 Essential (primary) hypertension; Z91.81 History of falling; Z79.899 Other long term (current) drug therapy
CPT/HCPCS: 36415; 80048; 82962; 85025; 97161-GP; 97530-GP; A9270-GY; J1650; J1815-GY; J7040